=== PATIENT | female | born 1960 | race Caucasian/White ===

== ENCOUNTER 2018-05-29 07:43 | Day surgery (SDC) | payer BC ==
[2018-05-23 09:38] VITALS: BMI 33.2
[~2018-05-29 07:43] MED LIST: CLINDAMYCIN 600 MG in DEXTROSE 5% IN WATER 50 ML IVPB ONE; DEXAMETHASONE SOD PHOSPHATE 4 MG/ML 1 ML VIAL IV ONE; FAMOTIDINE 20 MG/2 ML VIAL IV ONE; LACTATED RINGERS 1,000 ML IV SCH; ONDANSETRON 4 MG/2 ML VIAL IVP ONE; Pre Op ABX Message 1 EACH MISC MISCELLANE ONE
[2018-05-29] MEDS: OXYMETAZOLINE 0.05% NASL SPRAY 1 SPRAY BOTTLE NASAL ONE ×5 (08:00→08:20)
[2018-05-29 08:01] VITALS: RESP 16
[2018-05-29] MEDS ORDERED: DEXAMETHASONE SOD PHOSPHATE 10 MG/ML 1 ML VIAL IV ONE (08:12)
[2018-05-29] MEDS ORDERED: ONDANSETRON 4 MG/2 ML VIAL IVP ONE (08:12)
[2018-05-29] MEDS ORDERED: MIDAZOLAM 2 MG/2 ML VIAL IVP ONE (08:35)
[2018-05-29] MEDS ORDERED: PROPOFOL 10 MG/ML 20 ML VIAL IV ONE (09:29)
[2018-05-29] MEDS ORDERED: DEXAMETHASONE SOD PHOS (MDV) 100 MG/10 ML VIAL ONE (09:29)
[2018-05-29] MEDS ORDERED: SUCCINYLCHOLINE CHLORIDE 100 MG/5 ML SYR IV ONE (09:29)
[2018-05-29] MEDS ORDERED: fentaNYL (PF) 50 MCG/ML 2 ML AMP ONE (09:29)
[2018-05-29] MEDS ORDERED: MIDAZOLAM 2 MG/2 ML VIAL ONE (09:29)
[2018-05-29] MEDS ORDERED: LIDOCAINE 1% INJ 10MG/ML (20 ML MDV) ONE (09:29)
[2018-05-29] MEDS ORDERED: LIDOCAINE 1%-EPI 1:100,000 30 ML VIAL SUBMUCOSAL ONE ×2 (09:49)
[2018-05-29] MEDS ORDERED: LACTATED RINGERS 1,000 ML IV ONE ×2 (10:00)
--- NOTE | 2018-05-29 10:29 | P.OP ---
Date of Procedure: 05/29/18 Preoperative Diagnosis: Chronic right-sided sinusitis Deviated septum Inferior turbinate hypertrophy Postoperative Diagnosis: Same Procedure(s) Performed: Septoplasty Right-sided endoscopic sinus surgery including right maxillary antrostomy with removal of tissue from exercise right anterior and posterior ethmoidectomy Inferior turbinate outfracture and submucous resection Anesthesia: DERRICK Surgeon: Lorenzo Odom Estimated Blood Loss (ml): 10 Pathology: other (Nasal septal bone and cartilage sinus contents) Condition: stable Disposition: PACU Indications for Procedure: Is a 58-year-old white female whose had chronic right-sided sinusitis as well as nasal airway obstruction and congestion Operative Findings: Nasal septum deviated to the right, acute and chronic sinusitis with purulence in the right maxillary sinus which was cultured anterior posterior ethmoid sinuses on the right Mucosal thickening throughout, inferior turbinate hypertrophy bilateral Description of Procedure: The patient was brought in the operative suite and placed in a supine position. The patient underwent induction of general anesthesia with oral endotracheal intubation without difficulty. The patient was prepped and draped in usual aseptic fashion. Orbits were in the operating field for monitoring cut case and computed tomography scan was on the computer screen for review throughout the case also. 1% lidocaine with 1 100,000 epinephrine was infused submucosally both sides nasal septum as well as the right lateral nasal wall and anterior tips of the middle turbinate on the right. While this was taking vasoconstrictive effect the inferior turbinates were infractured with the [place] elevator partial submucous resection of inferior turbinates performed with Coblation wand the some ablating a portion of the submucosal soft tissue of the inferior turbinates bilateral. They were then outfractured with [place] elevator. A left hemitransfixion incision was made with the mucoperichondrial and mucoperiosteal flap on left elevated. Bony cartilaginous junction was disarticulated and the mucoperiosteal flap on the right was elevated. Septum was deviated to the right in the bony and cartilaginous septum obstructing approximately 70% nasal airway and thus this was the decision-making on proceeding with septoplasty. The bony nasal septal deformities were removed with Kellie forceps. An inferior cartilaginous strip was removed leaving a 1.5 cm caudal strut. Checking intranasally this corrected the nasoseptal deformities and the hemitransfixion incision was closed with a running 4-0 chromic suture. Full 0 endoscopic evaluation performed bilaterally. Proceeding on the right the medial maxillary wall was bulging and maxillary ostium was located with a ballpoint probe and infundibulotomy was performed followed by uncinectomy. There was purulent Drainage as well as some debris which was white. This was cultured. The maxillary ostium was enlarged at the expense of the anterior and posterior fontanelle taking care anteriorly not to injure the lacrimal bone. The macular sinus was explored and mucosal thickening was removed with small polyps with giraffe forceps. This sinus was also irrigated with sterile saline. Anterior and posterior ethmoidectomy was then performed where there was diffuse mucosal thickening especially in the anterior ethmoid air cells but no purulence. Once this was completed the small pledget of standard nasal pore nasal dressing was placed in the middle meatus particularly in the ethmoid labyrinth for hemostasis. The maxillary ostium was left open and nonobstructive. Bilateral Kinsey airway splints coated bacitracin ointment were placed in nasal cavities and sutured trans-septally with a 4-0 Vicryl suture. The patient was suctioned in oral gastric fashion. The patient allowed to emerge from general anesthesia having tolerated procedure well was extubated in the operating suite and transferred postoperative recovery area in satisfactory condition.
[2018-05-29 10:42] VITALS: TEMP 97.1
[2018-05-29] MEDS: HYDROmorphone 1 MG/ML 1 ML SYRINGE IVP PRN ×2 (10:48→10:53)
[2018-05-29 11:52] VITALS: BP 122/81; PULSE 74
== END 2018-05-29 12:06 | disposition home or self-care (01) ==
LOC: OR 07:43
PROVIDERS: ATTEND Otolaryngology
DX: J32.8 Other chronic sinusitis (principal); J01.80 Other acute sinusitis; J34.2 Deviated nasal septum; J34.3 Hypertrophy of nasal turbinates; J44.9 Chronic obstructive pulmonary disease, unspecified; I10 Essential (primary) hypertension; E78.5 Hyperlipidemia, unspecified; F32.9 Major depressive disorder, single episode, unspecified; Z79.82 Long term (current) use of aspirin; Z79.899 Other long term (current) drug therapy; Z72.0 Tobacco use; Z88.0 Allergy status to penicillin
CPT/HCPCS: 88305; 88300; 87070; 87205; 87075; 87102; 87077; 87186; 30520; 30140; 31267; 31255; J2250; J1100 ×2; J2405; J2001; J3010; J1170; J0330; J2704

== ENCOUNTER 2023-01-17 09:11 | Emergency (ER) | payer BC, OTHER ==
[2023-01-17 09:39] VITALS: TEMP 98
--- NOTE | 2023-01-17 11:16 | ED ---
General Adult HPI - General Chief complaint: Extremity Problem,Nontraumatic Stated complaint: deepak foot swelling Time Seen by Provider: 01/17/23 10:28 Source: patient, RN notes reviewed Mode of arrival: ambulatory Limitations: no limitations - History of Present Illness Initial comments: 62-year-old female presents to the emergency department with chief complaint of bilateral lower extremity swelling 3 days. Patient states that she noticed redness in her toes on both feet on Sunday along with calf tightness. She states that she has been taking Aleve. Denies shortness of breath, chest pain, cough. Past medical history includes hypertension, diabetes, hyperlipidemia. Patient is a smoker and states she is trying to cut back. Denies fevers, ch ills. - Related Data Home Medications Medication Instructions Recorded Confirmed Aspirin [Adult Low Dose Aspirin EC] 81 mg PO DAILY@1200 05/01/18 01/17/23 Atorvastatin [Lipitor] 20 mg PO HS 05/01/18 01/17/23 Metoprolol Succinate [Toprol XL] 25 mg PO HS 05/01/18 01/17/23 Enalapril [Vasotec] 5 mg PO DAILY 01/17/23 01/17/23 Multivitamins, Thera [Multivitamin 1 tab PO DAILY@1200 01/17/23 01/17/23 (formulary)] Venlafaxine HCl ER [Effexor Xr] 75 mg PO DAILY 01/17/23 01/17/23 Venlafaxine HCl [Effexor XR] 150 mg PO DAILY 01/17/23 01/17/23 glipiZIDE XL [Glucotrol Xl] 5 mg PO DAILY 01/17/23 01/17/23 metFORMIN HCL ER [Glucophage XR] 500 mg PO BID 01/17/23 01/17/23 Allergies Allergy/AdvReac Type Severity Reaction Status Date / Time diphenhydramine Allergy Anaphylaxis Verified 01/17/23 11:48 [From Benadryl] Penicillins Allergy hives, Verified 01/17/23 11:48 itching, tongue swelling Review of Systems ROS Statement: Those systems with pertinent positive or pertinent negative responses have been documented in the HPI. ROS Other: All systems not noted in ROS Statement are negative. Past Medical History Past Medical History: COPD, Hyperlipidemia, Hypertension, Pneumonia Additional Past Medical History / Comment(s): Varicose veins, bronchitis, sinus infections. History of Any Multi-Drug Resistant Organisms: None Reported Past Surgical History: Appendectomy, Breast Surgery, Orthopedic Surgery Additional Past Surgical History / Comment(s): Left arm surgery from nerve d amage, cysts removed from both ovaries, reconstruction of right nipple from injury. Past Anesthesia/Blood Transfusion Reactions: No Reported Reaction Past Psychological History: Anxiety, Depression Past Alcohol Use History: None Reported Past Drug Use History: None Reported - Past Family History Mother Family Medical History: Cancer Father Family Medical History: Cancer General Exam Limitations: no limitations General appearance: alert, in no apparent distress Head exam: Present: atraumatic, normocephalic, normal inspection Eye exam: Present: normal appearance, PERRL, EOMI. Absent: scleral icterus, conjunctival injection, periorbital swelling ENT exam: Present: normal exam, mucous membranes moist Neck exam: Present: normal inspection. Absent: tenderness, meningismus, lymphadenopathy Respiratory exam: Present: normal lung sounds bilaterally. Absent: respiratory distress, wheezes, rales, rhonchi, stridor Cardiovascular Exam: Present: regular rate, normal rhythm, normal heart sounds. Absent: systolic murmur, diastolic murmur, rubs, gallop, clicks GI/Abdominal exam: Present: soft, normal bowel sounds. Absent: distended, tenderness, guarding, rebound, rigid Extremities exam: Present: full ROM, tenderness (Mild tenderness to toes), normal capillary refill, other (DP and PT pulses 2+). Absent: pedal edema, joint swelling, calf tenderness Back exam: Present: normal inspection Neurological exam: Present: alert, oriented X3 Psychiatric exam: Present: normal affect, normal mood Skin exam: Present: warm, dry, intact, erythema (Erythema to the digits of bilateral feet not extending beyond the toes). Absent: rash Course Vital Signs 01/17/23 01/17/23 01/17/23 09:37 13:22 17:25 Temperature 98 F Pulse Rate 92 85 88 Respiratory 16 18 20 Rate Blood Pressure 153/91 133/86 O2 Sat by Pulse 99 98 96 Oximetry Medical Decision Making - Medical Decision Making Was pt. sent in by a medical professional or institution (, PA, JUMBO OPERATOR, urgent care, hospital, or half-way...) When possible be specific @ -No Did you speak to anyone other than the patient for history (EMS, parent, family, police, friend...)? What history was obtained from this source @ -No Did you review nursing and triage notes (agree or disagree)? Why? @ -I reviewed and agree with nursing and triage notes Were old charts reviewed (outside hosp., previous admission, EMS record, old EKG, old radiological studies, urgent care reports/EKG's, half-way records)? Report findings @ -No old charts were reviewed Differential Diagnosis (chest pain, altered mental status, abdominal pain women, abdominal pain men, vaginal bleeding, weakness, fever, dyspnea, syncope, headache, dizziness, GI bleed, back pain, seizure, CVA, palpatations, mental health, musculoskeletal)? @ -CHF, hepatic insufficiency, renal insufficiency, cellulitis, DVT, this list is not all-inclusive EKG interpreted by me (3pts min.). @ -None X-rays interpreted by me (1pt min.). @ -Chest x-ray shows borderline heart size, COPD, no definitive acute process CT interpreted by me (1pt min.). @ -None done U/S interpreted by me (1pt. min.). @ -Ultrasound of lower extremity showed no evidence for DVT, left-sided Henriquez cyst What testing was considered but not performed or refused? (CT, X-rays, U/S, labs)? Why? @ -None What meds were considered but not given or refused? Why? @ -None Did you discuss the management of the patient with other professionals (professionals i.e. , PA, JUMBO OPERATOR, lab, RT, psych nurse, dialysis social worker, ethyl blender, teacher, deputy juvenile officer, case checker)? Give summary @ -No Was smoking cessation discussed for >3mins.? @ -No Was critical care preformed (if so, how long)? @ -No Were there social determinants of health that impacted care today? How? (Homelessness, low income, unemployed, alcoholism, drug addiction, transportation, low edu. Level, literacy, decrease access to med. care, senior care, re hab)? @ -No Was there de-escalation of care discussed even if they declined (Discuss DNR or withdrawal of care, Hospice)? DNR status @ -No What co-morbidities impacted this encounter? (DM, HTN, Smoking, COPD, CAD, Cancer, CVA, ARF, Chemo, Hep., AIDS, mental health diagnosis, sleep apnea, morbid obesity)? @ -None Was patient admitted / discharged? Hospital course, mention meds given and route, prescriptions, significant lab abnormalities, going to OR and other pertinent info. @ -Discharged. Patient presented to the emergency department for lower extremity edema x3 days. Patient denies shortness of breath and chest pain. CBC within normal limits, CMP showed sodium 139, potassium 4.7, chloride 108; BNP 47; Chest x-ray shows borderline heart size, COPD, no definitive acute process. Ultrasound of bilateral lower extremities show no evidence for DVT, left-sided Henriquez cyst. She was given a dose of 40 mg Lasix. Patient discharged home in stable condition and advised follow-up with her primary care provider. Return precautions discussed with patient. Case discussed with my attending, Dr. Aponte Undiagnosed new problem with uncertain prognosis? @ -No Drug Therapy requiring intensive monitoring for toxicity (Heparin, Nitro, Insulin, Cardizem)? @ -No Were any procedures done? @ -No Diagnosis/symptom? @ -Lower extremity edema Acute, or Chronic, or Acute on Chronic? @ -acute Uncomplicated (without systemic symptoms) or Complicated (systemic symptoms)? @ -uncomplicated Side effects of treatment? @ -No Exacerbation, Progression, or Severe Exacerbation? @ -No Poses a threat to life or bodily function? How? (Chest pain, USA, MA, pneumonia, PE, COPD, DKA, ARF, appy, cholecystitis, CVA, Diverticulitis, Homicidal, Suicidal, threat to staff... and all critical care pts) @ -No - Lab Data Result diagrams: 01/17/23 11:32 01/17/23 11:32 Lab Results 01/17/23 01/17/23 01/17/23 Range/Units 11:32 11:32 11:32 WBC 9.4 (3.8-10.6) k/uL RBC 4.69 (3.80-5.40) m/uL Hgb 14.6 (11.4-16.0) gm/dL Hct 44.6 (34.0-46.0) % MCV 95.2 (80.0-100.0) fL MCH 31.1 (25.0-35.0) pg MCHC 32.7 (31.0-37.0) g/dL RDW 13.9 (11.5-15.5) % Plt Count 290 (150-450) k/uL MPV 8.2 Neutrophils % 60 % Lymphocytes % 30 % Monocytes % 4 % Eosinophils % 3 % Basophils % 1 % Neutrophils # 5.7 (1.3-7.7) k/uL Lymphocytes # 2.8 (1.0-4.8) k/uL Monocytes # 0.4 (0-1.0) k/uL Eosinophils # 0.3 (0-0.7) k/uL Basophils # 0.1 (0-0.2) k/uL PT 9.9 (9.0-12.0) sec INR 0.9 (<1.2) APTT 22.7 (22.0-30.0) sec Sodium 139 (137-145) mmol/L Potassium 4.7 (3.5-5.1) mmol/L Chloride 108 H (98-107) mmol/L Carbon Dioxide 23 (22-30) mmol/L Anion Gap 8 mmol/L BUN 13 (7-17) mg/dL Creatinine 0.61 (0.52-1.04) mg/dL Est GFR (CKD-EPI)AfAm >90 (>60 ml/min/1.73 sqM) Est GFR (CKD-EPI)NonAf >90 (>60 ml/min/1.73 sqM) Glucose 147 H (74-99) mg/dL POC Glucose (mg/dL) (70-110) mg/dL POC Glu Site Foreman ID Calcium 9.3 (8.4-10.2) mg/dL Total Bilirubin 0.6 (0.2-1.3) mg/dL AST 37 H (14-36) U/L ALT 31 (4-34) U/L Alkaline Phosphatase 77 (38-126) U/L Creatine Kinase 158 H (30-135) U/L NT-Pro-B Natriuret Pep pg/mL Total Protein 7.1 (6.3-8.2) g/dL Albumin 4.4 (3.5-5.0) g/dL 01/17/23 01/17/23 Range/Units 11:33 15:58 WBC (3.8-10.6) k/uL RBC (3.80-5.40) m/uL Hgb (11.4-16.0) gm/dL Hct (34.0-46.0) % MCV (80.0-100.0) fL MCH (25.0-35.0) pg MCHC (31.0-37.0) g/dL RDW (11.5-15.5) % Plt Count (150-450) k/uL MPV Neutrophils % % Lymphocytes % % Monocytes % % Eosinophils % % Basophils % % Neutrophils # (1.3-7.7) k/uL Lymphocytes # (1.0-4.8) k/uL Monocytes # (0-1.0) k/uL Eosinophils # (0-0.7) k/uL Basophils # (0-0.2) k/uL PT (9.0-12.0) sec INR (<1.2) APTT (22.0-30.0) sec Sodium (137-145) mmol/L Potassium (3.5-5.1) mmol/L Chloride (98-107) mmol/L Carbon Dioxide (22-30) mmol/L Anion Gap mmol/L BUN (7-17) mg/dL Creatinine (0.52-1.04) mg/dL Est GFR (CKD-EPI)AfAm (>60 ml/min/1.73 sqM) Est GFR (CKD-EPI)NonAf (>60 ml/min/1.73 sqM) Glucose (74-99) mg/dL POC Glucose (mg/dL) 145 H (70-110) mg/dL POC Glu Site Foreman ID Montoya, Ivett Calcium (8.4-10.2) mg/dL Total Bilirubin (0.2-1.3) mg/dL AST (14-36) U/L ALT (4-34) U/L Alkaline Phosphatase (38-126) U/L Creatine Kinase (30-135) U/L NT-Pro-B Natriuret Pep 47 pg/mL Total Protein (6.3-8.2) g/dL Albumin (3.5-5.0) g/dL Disposition Clinical Impression: Edema of lower extremity Disposition: HOME SELF-CARE Condition: Stable Instructions (If sedation given, give patient instructions): Leg Edema (ED) Additional Instructions: Follow up with your primary care provider. Please return to the emergency department for new or worsening symptoms. Is patient prescribed a controlled substance at d/c from ED?: No Referrals: Liliana Michael MD [Primary Care Provider] - 1-2 days Time of Disposition: 16:31
[2023-01-17 11:34] LABS: Glucose,Whole Blood 145 mg/dL (70-110)
[2023-01-17 11:49] LABS: INR 0.9 (<1.2); Partial Thromboplastin Time 22.7 sec (22.0-30.0); Prothrombin Time 9.9 sec (9.0-12.0)
--- NOTE | 2023-01-17 11:52 | XR ---
EXAMINATION TYPE: XR chest 2V DATE OF EXAM: 01/17/2023 COMPARISON: None HISTORY: 62 year-old female lower extremity edema TECHNIQUE: PA and lateral views FINDINGS: Heart upper limits of normal in size. Mild atherosclerotic arch calcifications. Strandy atelectasis i n the lower lungs. Possible nodularity along the left heart margin and left apex versus summation art ifact. No consolidation or pleural effusion. IMPRESSION: 1. Borderline heart size. COPD. No definite acute process. 2. Either summation artifact or a couple subtle underlying nodules left apex and lingula. Recommend n onemergent follow-up CT chest to exclude underlying pulmonary nodules.
[2023-01-17 11:53] LABS: ALT 31 U/L (4-34); AST 37 U/L (14-36); African American GFR (CKD) >90 (>60 ml/min/1.73 sqM); Albumin 4.4 g/dL (3.5-5.0); Alkaline Phosphatase 77 U/L (38-126); Anion Gap 8 mmol/L; Blood Urea Nitrogen 13 mg/dL (7-17); Calcium 9.3 mg/dL (8.4-10.2); Carbon Dioxide 23 mmol/L (22-30); Chloride 108 mmol/L (98-107); Creatine Kinase 158 U/L (30-135); Glucose 147 mg/dL (74-99); Non-African American GFR(CKD) >90 (>60 ml/min/1.73 sqM); Potassium 4.7 mmol/L (3.5-5.1); Sodium 139 mmol/L (137-145); Total Bilirubin 0.6 mg/dL (0.2-1.3); Total Protein 7.1 g/dL (6.3-8.2)
[2023-01-17 11:54] LABS: Basophils # (A) 0.1 k/uL (0-0.2); Basophils % (A) 1 %; Eosinophils # (A) 0.3 k/uL (0-0.7); Eosinophils % (A) 3 %; HCT 44.6 % (34.0-46.0); HGB 14.6 gm/dL (11.4-16.0); Lymphocytes # (A) 2.8 k/uL (1.0-4.8); Lymphocytes % (A) 30 %; MCH 31.1 pg (25.0-35.0); MCHC 32.7 g/dL (31.0-37.0); MCV 95.2 fL (80.0-100.0); Mean Platelet Volume 8.2; Monocytes # (A) 0.4 k/uL (0-1.0); Monocytes % (A) 4 %; Neutrophils # (A) 5.7 k/uL (1.3-7.7); Neutrophils % (A) 60 %; Platelet Count 290 k/uL (150-450); RBC 4.69 m/uL (3.80-5.40); RDW 13.9 % (11.5-15.5); WBC 9.4 k/uL (3.8-10.6)
[2023-01-17 13:23] VITALS: BP 133/86
--- NOTE | 2023-01-17 13:32 | US ---
EXAMINATION TYPE: US venous doppler duplex LE BI DATE OF EXAM: 01/17/2023 12:53 PM COMPARISON: NONE CLINICAL INDICATION: Female, 62 years old with history of LE edema; swelling SIDE PERFORMED: Bilateral TECHNIQUE: The lower extremity deep venous system is examined utilizing real time linear array sonog robinson with graded compression, doppler sonography and color-flow sonography. VESSELS IMAGED: Common Femoral Vein Deep Femoral Vein Greater Saphenous Vein * Femoral Vein Popliteal Vein Small Saphenous Vein * Proximal Calf Veins (* superficial vessels) Right Leg: Negative for DVT Left Leg: Negative for DVT. Moderate-sized Henriquez's Cyst= 5.6 x 1.8 x 4.1 cm IMPRESSION: 1. No evidence for DVT within the bilateral lower extremities imaged from the groin to the upper calf . 2. Moderate-sized 5.6 cm left-sided Henriquez cyst.
[2023-01-17] MEDS ORDERED: FUROSEMIDE 40 MG TAB PO STA (14:02)
[2023-01-17 17:25] VITALS: PULSE 88; RESP 20
== END 2023-01-17 17:26 | disposition home or self-care (01) ==
LOC: EC 09:11
DX: R60.0 Localized edema (principal); I10 Essential (primary) hypertension; J44.9 Chronic obstructive pulmonary disease, unspecified; E78.5 Hyperlipidemia, unspecified; F32.A Depression, unspecified; F41.9 Anxiety disorder, unspecified; Z79.82 Long term (current) use of aspirin; Z79.899 Other long term (current) drug therapy
CPT/HCPCS: 36415; 71046; 80053; 82550; 83880; 85025; 85610; 85730; 93970; 99284